=== PATIENT | male | born 1995 | race Caucasian/White ===

== ENCOUNTER 2018-03-17 19:59 | Emergency (ER) | payer SELFPAY ==
--- NOTE | 2018-03-17 20:03 | PDOC ---
History of Present Illness - General History Source: Patient, Friend Exam Limitations: No Limitations - History of Present Illness Initial Comments: 03/17/18 20:39 The patient is a 22 year old male, with no significant past medical history, who presents to the emergency department for evaluation after tripping and falling in the driveway while he was at a barbecue this evening. The patient states that he was running barefoot through the driveway in a swimsuit when he tripped over the hose of a powersaw supervisor and fell to the ground, sliding on the concrete and ending up in a thorn grant. The patient was immediately brought to the ED by his friends, who are at the patient's bedside. Currently in the ED, the patient is complaining of left wrist/hand pain, left knee pain and right toe /foot pain. The patient has multiple superficial abrasions to the anterior and lateral chest boland, left wrist/hand, left knee and right big toe. The patient has a laceration to the left chest wall at the left anterior axillary line. The patient states that he did not hit his head and he denies any LOC. PAST MEDICAL HISTORY: See HPI. PAST SURGICAL HISTORY: No significant past history. FAMILY HISTORY: No pertinent history. SOCIAL HISTORY: Patient lives with family and is employed. MEDICATIONS: Reviewed. ALLERGIES: As per nursing notes. Adult ROS: General: No fevers or chills, no weakness, no weight loss. HEENT: No change in vision. No sore throat. No ear pain. CardioVascular: No chest pain or shortness of breath. Respiratory: No cough, or wheezing. Gastrointestinal: No nausea, vomiting, diarrhea or constipation, no rectal bleeding. Genitourinary: No dysuria, hematuria, or frequency. Musculoskeletal: +Left wrist/hand pain, left knee pain, right toe/foot pain. Neurologic: No headache, vertigo, dizziness or loss of consciousness. Psychiatric: No depression. Skin: +Abrasions, laceration to the left anterolateral axilla. No rashes or easy bruising. Endocrine: No increased thirst or abnormal weight change. Allergic: No skin or latex allergy. All other systems reviewed and normal. Adult Exam: General: Well-nourished well-developed individual, no acute distress. HEENT: Throat: Normal, tonsils normal, no erythema or exudate. Neck: No cervical spine tenderness to palpation. Full ROM. Supple, no meningeal signs, no lymphadenopathy. Eyes: Pupils equal reactive and round, extraocular motion intact. Chest: Nontender to palpation. Cardiac: Regular rate and rhythm, normal S1, S2, no murmurs rubs or gallops. Respiratory: Lungs clear to auscultation bilaterally. Abdomen: Soft, nondistended, normal bowel sounds, nontender to palpation diffusely. Extremities: There is an abrasion over the right lateral breast which is superficial, no bleeding. There is a v shaped laceration to the left anterior axillary line lateral to the left nipple area, no bleeding. There is no tenderness of the pelvis or hips. Left lower extremity tenderness with an abrasion over the left lateral knee with tenderness to the medial knee and the quadriceps muscle. There is no ligamentous instability of the knee. There is no other bony tenderness of the left lower extremity. Neurovascularly intact. Right foot, there is an abrasion to the lateral aspect of the right big toe with bony tenderness of the toe, no deformity. No tenderness of the right foot or the rest of the right lower extremity. Neurovascularly intact. Warm, dry, no cyanosis, clubbing, or edema. Skin: Left arm, multiple superficial abrasions of the upper arm, upper posterior back and axilla area. No rashes. Neuro: Antalgic gait. Alert and oriented x3, nonfocal exam, grossly intact. Psych: Normal mood and affect. <Rosa Plata - Last Filed: 03/17/18 22:01> - General History Source: Patient Exam Limitations: No Limitations - History of Present Illness Initial Comments: A portion of this note was documented by scribe services under my direction. I have reviewed the details of the note, within reason, and agree with the documentation. The case summary and management plan written by me. 03/17/18 22:29 Medical decision showing making: This is a 22-year-old male who was running, who fell and skidded along a concrete walk resulting in multiple abrasions, contusions and a laceration of his left axilla area. Patient did not hit his head or pass out. Patient had multiple x-rays of his extremities and chest. Patient required repair of his laceration in the axilla the rest of the lacerations were superficial enough that did not require any sutured closure Procedure note laceration repair left axilla area This was a complex laceration that was Y shaped. Laceration was anesthetized with 1% lidocaine approximately a total of 6 mL. Laceration was revised to remove devitalized tissue and to give a better cosmetic closure. Laceration was thoroughly irrigated to remove any foreign bodies. Some of the subcutaneous fat was trimmed to improve the cosmetic closure. A total of 12 sutures were placed. Bacitracin and a sterile dressing were placed post suture patient tolerated well X-rays: Chest x-ray no acute pathology specifically no pneumothorax. Left hand no acute fractures or pathology Left wrist no acute fractures or pathology Left knee no acute fractures or pathology. Right toes no acute fractures or pathology. Assessment and plan: This is a 22-year-old male with a laceration of the left axilla multiple contusions abrasions but no fractures. Patient's laceration was cleaned and closed with sutures. Patient was discharged home with a friend who was willing to take responsibility for him and make sure he got home safe. Patient was given orthopedic follow-up and told to return to the ER in 10 days for suture removal. Patient was also given a note for no work for 7 days <Kamron Nance I - Last Filed: 03/17/18 22:35> - General Chief Complaint: Injury Stated Complaint: INJURY Time Seen by Provider: 03/17/18 20:02 Past History <Rosa Plata - Last Filed: 03/17/18 22:01> <Kamron Nance I - Last Filed: 03/17/18 22:35> - Past Medical History Allergies/Adverse Reactions: Allergies Allergy/AdvReac Type Severity Reaction Status Date / Time No Known Allergies Allergy Unverified 03/17/18 20:00 Home Medications: Ambulatory Orders NK [No Known Home Medication] 03/17/18 *Physical Exam - Vital Signs Last Vital Signs Temp Pulse Resp BP Pulse Ox 99.6 F 115 H 16 138/75 98 03/17/18 20:02 03/17/18 20:02 03/17/18 20:02 03/17/18 20:02 03/17/18 20:02 <Rosa Plata - Last Filed: 03/17/18 22:01> ED Treatment Course - Medications Given in the ED: ED Medications Discontinued Medications Generic Name Dose Route Start Last Admin Trade Name Ya PRN Reason Stop Dose Admin Ibuprofen 800 mg 03/17/18 20:08 03/17/18 20:13 Motrin - PO 03/17/18 20:09 800 mg ONCE ONE Administration <Rosa Plata - Last Filed: 03/17/18 22:01> *DC/Admit/Observation/Transfer - Attestations Scribe Attestion: 03/17/18 20:42 Documentation prepared by Rosa Plata, acting as biomedical repair technician for Kamron Nance MD. <Rosa Plata - Last Filed: 03/17/18 22:01> - Discharge Dispostion Decision to Admit order: No <Kamron Nance I - Last Filed: 03/17/18 22:35> Diagnosis at time of Disposition: Multiple contusions, Abrasions of multiple sites Laceration of chest wall, complicated Qualifiers: Encounter type: initial encounter Laterality: left Qualified Code(s): S21.112A - Laceration without foreign body of left front wall of thorax without penetration into thoracic cavity, initial encounter - Discharge Dispostion Disposition: HOME Condition at time of disposition: Stable - Patient Instructions Printed Discharge Instructions: DI for Laceration Repair -- Simple Additional Instructions: Suture removal in 10 days. Clean the area that was sutured to daily with some peroxide and reapply bacitracin. Ice the knee area that is hurting 20 minutes at a time 3 times a day for the next 3 days. Take Tylenol or Motrin as needed for pain. Follow-up with an orthopedist if you need an orthopedist call Dr. Long at [phone] No work for one week you may return to work on March 26 Return to the emergency department immediately with ANY new, persistent or worsening symptoms. Continue any medications as previously prescribed by your physician. You should follow up with your primary doctor as soon as possible regarding today's emergency department visit. . Please make sure your doctor reviews the results of your emergency evaluation. Thank you for coming to the Emergency Department today for your care. It was a pleasure to see you today. Please note that your evaluation is INCOMPLETE until you follow-up with your doctor. - Post Discharge Activity Forms/Work/School Notes: Back to Work
[2018-03-17 20:04] VITALS: BP 138/75; PULSE 115; TEMP 99.6; BMI 29.8
[2018-03-17] MEDS ORDERED: IBUPROFEN 400 MG TABLET (FP) PO ONE ×2 (20:08→20:12)
== END 2018-03-17 22:14 | disposition home or self-care (01) ==
LOC: FER 19:59
PROC: 0HQ7XZZ Repair Abdomen Skin, External Approach (ICD-10-PCS; principal; 2018-03-17)
DX: S21.112A Laceration without foreign body of left front wall of thorax without penetration into thoracic cavity, initial encounter (principal); W18.39XA Other fall on same level, initial encounter; Y93.02 Activity, running; Y92.096 Garden or yard of other non-institutional residence as the place of occurrence of the external cause
CPT/HCPCS: 71046-TC-FY; 73110-TC-LR-FY; 73130-TC-LR-FY; 73562-TC-LT-FY; 73660-TC-FY; 99282-25

== ENCOUNTER 2018-03-26 22:54 | Emergency (ER) | payer OTHER ==
[2018-03-26 23:01] VITALS: BP 137/76; PULSE 90; TEMP 98; BMI 30.5
--- NOTE | 2018-03-26 23:01 | PDOC ---
Suture Removal/Wound Check HPI - History of Present Illness Chief Complaint: Suture/Staple Removal(Here) Stated Complaint: SUTURE REMOVAL Time Seen by Provider: 03/26/18 23:00 History Source: Yes: Patient Exam Limitations: Yes: No Limitations - Previous ED Treatment Type of procedure performed on last visit: Yes: Laceration Repair Tetanus Immunization: Yes: Up to Date - Onset of Previous Treatment Comment:: 03/26/18 23:02 This is a 22-year-old male who comes in for suture removal of sutures that were placed approximately 9 days ago. I initially saw the patient and placed the sutures. On my evaluation wound is well-healed. Sutures were removed without difficulty there were a total of 12 sutures. Patient discharged Past History - Past Medical History Allergies/Adverse Reactions: Allergies Allergy/AdvReac Type Severity Reaction Status Date / Time No Known Allergies Allergy Verified 03/26/18 22:56 Home Medications: Ambulatory Orders NK [No Known Home Medication] 03/17/18 COPD: No - Suicide/Smoking/Psychosocial Hx Smoking History: Current some day smoker 'Breaking Loose' booklet given: 03/17/18 *DC/Admit/Observation/Transfer Diagnosis at time of Disposition: Visit for suture removal - Discharge Dispostion Disposition: HOME Condition at time of disposition: Stable Decision to Admit order: No - Referrals - Patient Instructions Printed Discharge Instructions: DI for Suture Removal Additional Instructions: Follow-up with an orthopedist for the knee pain if he needed an orthopedist call [phone] Ochoa or any of the orthopedist in his group Return to the emergency department immediately with ANY new, persistent or worsening symptoms. Continue any medications as previously prescribed by your physician. You should follow up with your primary doctor as soon as possible regarding today's emergency department visit. . Please make sure your doctor reviews the results of your emergency evaluation. Thank you for coming to the Emergency Department today for your care. It was a pleasure to see you today. Please note that your evaluation is INCOMPLETE until you follow-up with your doctor. - Post Discharge Activity
== END 2018-03-26 23:12 | disposition home or self-care (01) ==
LOC: FER 22:54
DX: Z48.02 Encounter for removal of sutures (principal)
CPT/HCPCS: 99281-25

== ENCOUNTER 2018-06-29 01:41 | Emergency (ER) | payer OTHER ==
[2018-06-29 01:49] VITALS: BP 117/74; PULSE 82; TEMP 98.3; BMI 29.8
[2018-06-29] MEDS ORDERED: IBUPROFEN 600 MG TABLET (FP) PO ONE ×2 (01:54→01:55)
--- NOTE | 2018-06-29 01:55 | PDOC ---
History of Present Illness - General Chief Complaint: Injury Stated Complaint: RT ARM PAIN Time Seen by Provider: 06/29/18 01:53 History Source: Patient Exam Limitations: No Limitations - History of Present Illness Initial Comments: 06/29/18 01:53 This is a 23-year-old male who comes in complaining of pain to his right arm. Patient banged it on a dresser earlier in the day. Patient denies any other complaints PAST MEDICAL HISTORY: no significant history PAST SURGICAL HISTORY: no significant history FAMILY HISTORY: no pertinant history SOCIAL HISTORY: Pt lives with family and is employed. MEDICATIONS: reviewed ALLERGIES: As per nursing notes ROS General: No fevers or chills, no weakness, no weight loss HEENT: No change in vision. No sore throat,. No ear pain CardioVascular: No chest pain or shortness of breath Respiratory:No cough, or wheezing. Gastrointestinal: no nausea, vomiting, diarrhea or constipation, No rectal bleeding Genitourinary: No dysuria, hematuria, or frequency Musculoskeletal: . No joint pain or swelling Neurologic: No headache, vertigo, dizziness or loss of consciousness Psychiatric: nor depression Skin: No rashes or easy bruising Endocrine: no increased thirst or abnormal weight change Allergic: no skin or latex allergy All other systems reviewed and normal GENERAL: The patient is awake, alert, and fully oriented, in no acute distress. HEAD: Normal with no signs of trauma. EARS: Bilateral ears are normal with normal external canal. and tympanic membranes. EYES: Pupils equal, round and reactive to light, extraocular movements intact, sclera anicteric, conjunctiva clear. EXTREMITIES: Normal range of motion, no edema. There is small soft tissue contusion on the right arm NEUROLOGICAL: Normal speech, normal gait. grossly intact PSYCH: Normal mood, normal affect. SKIN: Warm, Dry, normal turgor, no rashes or lesions noted. Past History - Past Medical History Allergies/Adverse Reactions: Allergies Allergy/AdvReac Type Severity Reaction Status Date / Time No Known Allergies Allergy Verified 03/26/18 22:56 Home Medications: Ambulatory Orders NK [No Known Home Medication] 03/17/18 COPD: No - Suicide/Smoking/Psychosocial Hx Smoking History: Current some day smoker Have you smoked in the past 12 months: Yes Information on smoking cessation initiated: Yes 'Breaking Loose' booklet given: 03/17/18 Hx Alcohol Use: No Drug/Substance Use Hx: No Substance Use Type: None *Physical Exam - Vital Signs Last Vital Signs Temp Pulse Resp BP Pulse Ox 98.3 F 82 16 117/74 98 06/29/18 01:44 06/29/18 01:44 06/29/18 01:44 06/29/18 01:44 06/29/18 01:44 *DC/Admit/Observation/Transfer Diagnosis at time of Disposition: Contusion of arm Qualifiers: Encounter type: initial encounter Laterality: right Qualified Code(s): S40.021A - Contusion of right upper arm, initial encounter - Discharge Dispostion Disposition: HOME Condition at time of disposition: Stable Decision to Admit order: No - Referrals Referrals: Yarely Deng [Primary Care Provider] - - Patient Instructions Additional Instructions: Tylenol or Motrin as needed for pain. Return to the emergency department immediately with ANY new, persistent or worsening symptoms. Continue any medications as previously prescribed by your physician. You should follow up with your primary doctor as soon as possible regarding today's emergency department visit. . Please make sure your doctor reviews the results of your emergency evaluation. Thank you for coming to the Emergency Department today for your care. It was a pleasure to see you today. Please note that your evaluation is INCOMPLETE until you follow-up with your doctor. - Post Discharge Activity
== END 2018-06-29 01:57 | disposition home or self-care (01) ==
LOC: FER 01:41
DX: S40.021A Contusion of right upper arm, initial encounter (principal); W22.03XA Walked into furniture, initial encounter; Y93.9 Activity, unspecified; Y92.89 Other specified places as the place of occurrence of the external cause; F17.210 Nicotine dependence, cigarettes, uncomplicated
CPT/HCPCS: 99281-25

== ENCOUNTER 2020-11-12 05:56 | Day surgery (SDC) | payer OTHER ==
[2020-11-11 14:23] VITALS: BMI 29.4
[2020-11-12] MEDS ORDERED: MIDAZOLAM HCL 2 MG/2 ML SINGLE DOSE VIAL ONE (06:54)
[2020-11-12] MEDS ORDERED: SODIUM CHLORIDE 0.9% P/F 10 ML VIAL IJ ONE (06:54)
[2020-11-12] MEDS ORDERED: BUPIVACAINE HCL 50 ML ONE (06:54)
[2020-11-12] MEDS ORDERED: BUPIVACAINE LIPOSOME/PF (EXPAREL) 266 MG/20 ML VIAL ONE (06:54)
[2020-11-12] MEDS ORDERED: BUPIVACAINE HCL/PF 2.5 MG/ML - 30 ML VIAL IJ ONE (07:25)
[2020-11-12] MEDS ORDERED: EPINEPHrine 1:1,000 1 MG/1 ML - 30ML VIAL (INJECTION) ONE (07:26)
[2020-11-12] MEDS ORDERED: PROPOFOL 20 ML ONE ×3 (08:09→10:50)
[2020-11-12] MEDS ORDERED: ROCURONIUM BROMIDE 50 MG/5 ML VIAL ONE (08:09)
[2020-11-12] MEDS ORDERED: SUCCINYLCHOLINE CHLORIDE 200 MG/10 ML SYRINGE ONE (08:09)
[2020-11-12] MEDS ORDERED: fentaNYL CITRATE 250 MCG/5 ML VIAL ONE (08:45)
[2020-11-12] MEDS ORDERED: SEVOFLURANE 250 ML BTL ONE (08:48)
[2020-11-12] MEDS ORDERED: oxyCODONE HCL 5 MG TABLET PO PRN (11:08)
[2020-11-12] MEDS ORDERED: ONDANSETRON 4 MG/2 ML VIAL IVPUSH PRN (11:08)
[2020-11-12] MEDS ORDERED: PROMETHAZINE HCL 25 MG/1 ML VIAL IVPUSH PRN (11:08)
[2020-11-12] MEDS ORDERED: LACTATED RINGERS SOLUTION 1,000 ML IV SCH (11:15)
[2020-11-12 12:14] VITALS: TEMP 97.9
[2020-11-12 13:16] VITALS: BP 132/78; PULSE 80
== END 2020-11-12 13:16 | disposition home or self-care (01) ==
LOC: FASU 05:56 → EDSTATUS 07:30 → FASU 13:16
PROVIDERS: ATTEND Orthopaedic Surgery Sports Medicine
PROC: 0MRN47Z Replacement of Right Knee Bursa and Ligament with Autologous Tissue Substitute, Percutaneous Endoscopic Approach (ICD-10-PCS; principal; 2020-11-12 08:30)
PROC: 0SBC4ZZ Excision of Right Knee Joint, Percutaneous Endoscopic Approach (ICD-10-PCS; 2020-11-12 08:30)
DX: M23.611 Other spontaneous disruption of anterior cruciate ligament of right knee (principal); M23.251 Derangement of posterior horn of lateral meniscus due to old tear or injury, right knee
CPT/HCPCS: 29881; 29888; C1713; 94760